=== PATIENT | female | born 1965 | race African-American/Black ===

== ENCOUNTER 2022-08-09 19:17 | Observation (INO) | payer OTHER ==
[2022-08-09 19:39] VITALS: BMI 23.0
[2022-08-09] MEDS ORDERED: ACETAMINOPHEN 325 MG TABLET (FP) PO ONE (20:40)
[2022-08-09] MEDS ORDERED: ACETAMINOPHEN 500 MG TABLET (FP) PO ONE (20:40)
[2022-08-09] MEDS ORDERED: ACETAMINOPHEN 325 MG TABLET (FP) ONE (20:54)
[2022-08-09 21:55] LABS: HEMATOCRIT 33.2 % (32.4-45.2); HEMOGLOBIN 10.7 GM/dL (10.7-15.3); MCH 23.1 pg (25.7-33.7); MCHC 32.3 g/dl (32.0-36.0); MEAN CELL VOLUME 71.4 fl (80-96); MEAN PLT VOLUME 7.8 fl (7.5-11.1); PLATELET COUNT 296 10^3/uL (134-434); RBC 4.65 M/mm3 (3.60-5.2); RDW 16.2 % (11.6-15.6); WHITE BLOOD COUNT 8.3 K/mm3 (4.0-10.0)
[2022-08-09 22:18] LABS: CALCIUM 8.7 mg/dL (8.5-10.1)
[2022-08-09 22:19] LABS: ALBUMIN 3.3 g/dl (3.4-5.0); BLOOD UREA NITROGEN 11.1 mg/dL (7-18)
[2022-08-09 22:24] LABS: BILIRUBIN,TOTAL 0.2 mg/dL (0.2-1); TOT PROT 6.8 g/dl (6.4-8.2)
[2022-08-09 22:36] LABS: ANISOCYTOSIS 1+; MACROCYTOSIS 0; OVALOCYTE 1+; PLATELET ESTIMATE NORMAL
[2022-08-10 01:01] VITALS: TEMP 97.3
[2022-08-10] MEDS ORDERED: LISINOPRIL 20 MG TABLET PO ONE (04:10)
[2022-08-10] MEDS ORDERED: LISINOPRIL 20 MG TABLET ONE (04:45)
[2022-08-10 05:11] VITALS: RESP 18
[2022-08-10] MEDS ORDERED: HYDROCHLOROTHIAZIDE 12.5 MG CAPSULE (FP) PO SCH (07:00)
[2022-08-10 07:25] VITALS: BP 154/64; PULSE 91
[2022-08-10] MEDS ORDERED: HYDROCHLOROTHIAZIDE 25 MG TABLET (FP) ONE (07:26)
[2022-08-10] MEDS: INSULIN SLIDING SCALE (NOVOLOG) 1 VIAL SQ SCH ×2 (07:33→12:39)
[2022-08-10] MEDS ORDERED: ENOXAPARIN NA (PORCINE) 40 MG/0.4 ML DISP.SYRIN SQ ONE (09:31)
[2022-08-10] MEDS ORDERED: ENOXAPARIN NA (PORCINE) 40 MG/0.4 ML DISP.SYRIN SQ SCH (10:00)
[2022-08-10] MEDS ORDERED: oxyCODONE HCL 5 MG TABLET PO SCH (12:30)
[2022-08-10] MEDS ORDERED: oxyCODONE HCL 5 MG TABLET ONE (12:56)
[2022-08-10] MEDS ORDERED: ALPRAZolam 1 MG TABLET PO PRN (16:13)
[2022-08-10] MEDS ORDERED: LISINOPRIL 20 MG TABLET PO SCH (22:00)
== END 2022-08-10 16:30 | disposition home or self-care (01) ==
LOC: JER 19:17 → EDBD 08-10 01:01 → JERBED 08-10 01:01
PROVIDERS: ADMIT Internal Medicine; ATTEND Internal Medicine
PROC: 3E013GC Introduction of Other Therapeutic Substance into Subcutaneous Tissue, Percutaneous Approach (ICD-10-PCS; principal; 2022-08-10)
DX: R07.89 Other chest pain (principal); I10 Essential (primary) hypertension; E11.9 Type 2 diabetes mellitus without complications; E78.5 Hyperlipidemia, unspecified; F17.210 Nicotine dependence, cigarettes, uncomplicated; I25.2 Old myocardial infarction; M25.562 Pain in left knee; M71.22 Synovial cyst of popliteal space [Baker], left knee; G89.29 Other chronic pain; Z79.84 Long term (current) use of oral hypoglycemic drugs; Z88.6 Allergy status to analgesic agent
CPT/HCPCS: 36415; 71046-TC-FY; 73562-TC-LT-FY; 73700-TC-RT; 80053; 80061; 82962; 83036; 84439; 84443; 84484; 85025; 93005; 93010; 93306-TC; 96372; 99285-25; C9803-CS; G0378; U0003; U0005

== ENCOUNTER 2022-08-15 01:47 | Emergency (ER) | payer OTHER ==
[2022-08-15 02:02] VITALS: BP 161/81; PULSE 86; RESP 18; TEMP 98.6; BMI 23.0
[2022-08-15] MEDS ORDERED: ASPIRIN 81 MG CHEWABLE TABLETS PO ONE (03:00)
[2022-08-15] MEDS ORDERED: ASPIRIN 325 MG TABLET ONE (03:09)
[2022-08-15] MEDS ORDERED: ASPIRIN 81 MG CHEWABLE TABLETS ONE (03:09)
[2022-08-15 04:56] LABS: HEMATOCRIT 32.5 % (32.4-45.2); HEMOGLOBIN 10.4 GM/dL (10.7-15.3); MCH 22.8 pg (25.7-33.7); MCHC 31.8 g/dl (32.0-36.0); MEAN CELL VOLUME 71.6 fl (80-96); MEAN PLT VOLUME 7.7 fl (7.5-11.1); PLATELET COUNT 318 10^3/uL (134-434); RBC 4.54 M/mm3 (3.60-5.2); RDW 15.9 % (11.6-15.6); WHITE BLOOD COUNT 8.8 K/mm3 (4.0-10.0)
[2022-08-15 04:58] LABS: INR 1.02 (0.83-1.09); PROTHROMBIN TIME (PATIENT) 11.7 SEC (9.7-13.0)
[2022-08-15 05:01] LABS: ACTIVATED PTT 36.5 SECONDS (25.2-36.5)
[2022-08-15 05:09] LABS: CALCIUM 8.4 mg/dL (8.5-10.1)
[2022-08-15 05:11] LABS: ALBUMIN 3.2 g/dl (3.4-5.0); BLOOD UREA NITROGEN 11.7 mg/dL (7-18)
[2022-08-15 05:14] LABS: CREATININE 0.9 mg/dL (0.55-1.3)
[2022-08-15 05:15] LABS: BILIRUBIN,TOTAL 0.2 mg/dL (0.2-1); TOT PROT 6.5 g/dl (6.4-8.2)
[2022-08-15 06:42] LABS: ANISOCYTOSIS 3+; MACROCYTOSIS 0
== END 2022-08-15 06:59 | disposition home or self-care (01) ==
LOC: JER 01:47
DX: R07.9 Chest pain, unspecified (principal)
CPT/HCPCS: 36415; 71045-TC-FY; 80053; 84484; 85025; 85379; 85610; 85730; 93005; 93010; 99285-25

== ENCOUNTER 2022-08-22 17:05 | Observation (INO) | payer OTHER ==
[2022-08-22 18:04] VITALS: TEMP 98.2; BMI 23.6
[2022-08-22] MEDS ORDERED: PROCHLORPERAZINE MALEATE 5 MG TABLET PO ONE (18:22)
[2022-08-22] MEDS ORDERED: ASPIRIN 325 MG TABLET PO ONE (18:22)
[2022-08-22] MEDS ORDERED: ASPIRIN 81 MG CHEWABLE TABLETS PO ONE (18:29)
[2022-08-22] MEDS ORDERED: PROCHLORPERAZINE MALEATE 5 MG TABLET ONE (18:32)
[2022-08-22] MEDS ORDERED: ASPIRIN 81 MG CHEWABLE TABLETS ONE (18:33)
[2022-08-22] MEDS ORDERED: LIDOCAINE 5% TOPICAL PATCH ONE (18:33)
[2022-08-22] MEDS: LIDOCAINE 5% TOPICAL PATCH TP ONE ×2 (18:36→18:54)
[2022-08-22 19:17] LABS: BASO % 0.7 % (0-2.0); EOS % 0.8 % (0-4.5); HEMATOCRIT 37.5 % (32.4-45.2); HEMOGLOBIN 12.2 GM/dL (10.7-15.3); LYMPH % 33.6 % (8-40); MCH 22.9 pg (25.7-33.7); MCHC 32.4 g/dl (32.0-36.0); MEAN CELL VOLUME 70.8 fl (80-96); MEAN PLT VOLUME 7.6 fl (7.5-11.1); MONO % 4.9 % (3.8-10.2); PLATELET COUNT 350 10^3/uL (134-434); RDW 16.2 % (11.6-15.6)
[2022-08-22 19:35] LABS: CALCIUM 9.2 mg/dL (8.5-10.1)
[2022-08-22 19:36] LABS: BLOOD UREA NITROGEN 12.1 mg/dL (7-18)
[2022-08-22 19:39] LABS: CREATININE 1.1 mg/dL (0.55-1.3)
[2022-08-22 19:40] LABS: BILIRUBIN,TOTAL 0.3 mg/dL (0.2-1)
[2022-08-22 19:41] LABS: TOT PROT 7.6 g/dl (6.4-8.2)
[2022-08-22 19:45] LABS: ALBUMIN 3.8 g/dl (3.4-5.0)
[2022-08-23] MEDS ORDERED: LIDOCAINE PATCH REMOVAL MC SCH ×2 (06:30→22:00)
[2022-08-23] MEDS: INSULIN SLIDING SCALE (NOVOLOG) 1 VIAL SQ SCH ×2 (08:17→11:20)
[2022-08-23] MEDS ORDERED: amLODIPine BESYLATE 5 MG TABLET (FP) ONE (09:23)
[2022-08-23] MEDS ORDERED: metoPROLOL SUCCINATE 25 MG TAB.SR.24H (FP) PO ONE (09:23)
[2022-08-23] MEDS ORDERED: ASPIRIN COATED 81 MG TABLET.EC ONE (09:23)
[2022-08-23] MEDS ORDERED: NICOTINE 7 MG/24 HOURS TOPICAL PATCH TD ONE (09:24)
[2022-08-23] MEDS ORDERED: LIDOCAINE 5% TOPICAL PATCH ONE ×2 (09:24→16:19)
[2022-08-23] MEDS ORDERED: LIDOCAINE 5% TOPICAL PATCH TP SCH (10:00)
[2022-08-23] MEDS ORDERED: ASPIRIN COATED 81 MG TABLET.EC PO SCH (10:00)
[2022-08-23] MEDS ORDERED: NICOTINE 7 MG/24 HOURS TOPICAL PATCH TD SCH (10:00)
[2022-08-23] MEDS ORDERED: LOSARTAN POTASSIUM 50 MG TABLET PO SCH (10:00)
[2022-08-23] MEDS ORDERED: ENOXAPARIN NA (PORCINE) 40 MG/0.4 ML DISP.SYRIN SQ SCH (10:00)
[2022-08-23] MEDS ORDERED: metoPROLOL SUCCINATE 25 MG TAB.SR.24H (FP) PO SCH (10:00)
[2022-08-23] MEDS ORDERED: amLODIPine BESYLATE 5 MG TABLET (FP) PO SCH (10:00)
[2022-08-23 11:23] VITALS: BP 145/63; PULSE 73; RESP 15
[2022-08-23] MEDS ORDERED: ATORVASTATIN CA 40 MG TABLET (FP) PO SCH (22:00)
[2022-08-23] MEDS ORDERED: ATORVASTATIN CA 80 MG TABLET (FP) PO SCH (22:00)
[2022-08-24] MEDS ORDERED: LIDOCAINE PATCH REMOVAL MC ONE (06:30)
== END 2022-08-23 17:45 | disposition left against medical advice (07) ==
LOC: JER 17:05 → UNDOADMOB 20:19 → INTOOBSV 20:19 → JERBED 20:19 → OBSVTOIN 20:19 → INTOOBSV 23:00 → UNDOADMOB 23:00 → OBSVTOIN 23:00 → JERBED 23:00
PROVIDERS: ADMIT Internal Medicine; ATTEND Internal Medicine
DX: I25.119 Atherosclerotic heart disease of native coronary artery with unspecified angina pectoris (principal); I11.9 Hypertensive heart disease without heart failure; I25.2 Old myocardial infarction; E78.5 Hyperlipidemia, unspecified; R07.9 Chest pain, unspecified; F17.210 Nicotine dependence, cigarettes, uncomplicated; E11.9 Type 2 diabetes mellitus without complications; M25.562 Pain in left knee; I10 Essential (primary) hypertension; Z88.8 Allergy status to other drugs, medicaments and biological substances
CPT/HCPCS: 36415; 71045-TC-FY; 80053; 82962; 84484; 85025; 93005; 93010; 99285-25; C9803-CS; G0378; U0003; U0005

== ENCOUNTER 2022-09-09 17:28 | Emergency (ER) | payer OTHER ==
[2022-09-09 18:06] VITALS: BP 149/79; PULSE 91; RESP 20; TEMP 98.5; BMI 23.6
[2022-09-09] MEDS ORDERED: ACETAMINOPHEN 1000 MG/100 ML BAG IVPB ONE (18:23)
[2022-09-09] MEDS ORDERED: LIDOCAINE 5% TOPICAL PATCH TP ONE (18:23)
[2022-09-09] MEDS ORDERED: ACETAMINOPHEN 325 MG TABLET (FP) ONE (18:38)
[2022-09-09] MEDS ORDERED: LIDOCAINE 5% TOPICAL PATCH ONE (18:38)
[2022-09-09] MEDS ORDERED: ACETAMINOPHEN 325 MG TABLET (FP) PO ONE ×2 (18:39→18:43)
[2022-09-09 19:21] LABS: ALBUMIN 3.4 g/dl (3.4-5.0); BLOOD UREA NITROGEN 9.2 mg/dL (7-18)
[2022-09-09 19:24] LABS: TOT PROT 6.7 g/dl (6.4-8.2)
[2022-09-09 19:26] LABS: BILIRUBIN,TOTAL 0.2 mg/dL (0.2-1)
[2022-09-10] MEDS ORDERED: LIDOCAINE PATCH REMOVAL MC SCH (06:30)
== END 2022-09-09 18:30 | disposition left against medical advice (07) ==
LOC: JER 17:28
DX: R07.9 Chest pain, unspecified (principal)
CPT/HCPCS: 36415; 71045-TC-FY; 80053; 82962; 84484; 99285-25

== ENCOUNTER 2022-09-24 08:43 | Emergency (ER) | payer OTHER ==
[2022-09-24 09:02] VITALS: BP 138/81; RESP 20; TEMP 98.3; BMI 23.6
[2022-09-24] MEDS ORDERED: LIDOCAINE 5% TOPICAL PATCH TP ONE (09:54)
[2022-09-24] MEDS ORDERED: FAMOTIDINE 20 MG TABLET PO ONE (09:54)
[2022-09-24] MEDS ORDERED: FAMOTIDINE 20 MG TABLET ONE (09:58)
[2022-09-24] MEDS ORDERED: LIDOCAINE 5% TOPICAL PATCH ONE (09:58)
[2022-09-24 14:07] VITALS: PULSE 89
[2022-09-24] MEDS ORDERED: LIDOCAINE PATCH REMOVAL MC ONE (22:00)
== END 2022-09-24 14:07 | disposition left against medical advice (07) ==
LOC: JER 08:43
DX: R51.9 Headache, unspecified (principal); R07.89 Other chest pain
CPT/HCPCS: 0241U-QW; 72128-TC; 93005; 93010; 99285-25

== ENCOUNTER 2022-09-29 11:03 | Inpatient (IN) | payer OTHER ==
[2022-09-29 11:30] VITALS: BMI 30.2
[2022-09-29 18:32] LABS: BASO % 1.5 % (0-2.0); HEMATOCRIT 35.7 % (32.4-45.2); HEMOGLOBIN 11.7 GM/dL (10.7-15.3); LYMPH % 45.1 % (8-40); MCH 22.8 pg (25.7-33.7); MCHC 32.6 g/dl (32.0-36.0); MEAN CELL VOLUME 69.8 fl (80-96); MEAN PLT VOLUME 7.9 fl (7.5-11.1); MONO % 5.1 % (3.8-10.2); NEUT % 46.3 % (42.8-82.8); PLATELET COUNT 288 10^3/uL (134-434); RBC 5.12 M/mm3 (3.60-5.2); RDW 14.8 % (11.6-15.6); WHITE BLOOD COUNT 7.5 K/mm3 (4.0-10.0)
[2022-09-29 18:40] LABS: INR 1.06 (0.83-1.09); PROTHROMBIN TIME (PATIENT) 12.2 SEC (9.7-13.0)
[2022-09-29 18:59] LABS: CALCIUM 8.8 mg/dL (8.5-10.1)
[2022-09-29 19:00] LABS: ALBUMIN 3.3 g/dl (3.4-5.0); MAGNESIUM 1.9 mg/dL (1.8-2.4)
[2022-09-29 19:05] LABS: BILIRUBIN,TOTAL 0.2 mg/dL (0.2-1); TOT PROT 6.6 g/dl (6.4-8.2)
[2022-09-29 20:28] LABS: CALCIUM 8.5 mg/dL (8.5-10.1)
[2022-09-29 20:29] LABS: ALBUMIN 3.1 g/dl (3.4-5.0); BLOOD UREA NITROGEN 6.2 mg/dL (7-18)
[2022-09-29 20:32] LABS: CREATININE 0.9 mg/dL (0.55-1.3)
[2022-09-29 20:34] LABS: BILIRUBIN,TOTAL 0.2 mg/dL (0.2-1); TOT PROT 6.1 g/dl (6.4-8.2)
[2022-09-29] MEDS ORDERED: INSULIN SLIDING SCALE (NOVOLOG) 1 VIAL SQ SCH (21:45)
[2022-09-29] MEDS ORDERED: ACETAMINOPHEN 1000 MG/100 ML BAG IVPB PRN (21:48)
[2022-09-29] MEDS ORDERED: SODIUM CHLORIDE 1,000 ML IV SCH (22:00)
[2022-09-30] MEDS: INSULIN SLIDING SCALE (NOVOLOG) 1 VIAL SQ SCH ×2 (07:15→12:00)
[2022-09-30 09:27] VITALS: BP 146/75; PULSE 96; RESP 20; TEMP 99.3
[2022-09-30] MEDS ORDERED: ASPIRIN COATED 81 MG TABLET.EC PO SCH (10:00)
[2022-09-30] MEDS ORDERED: ENOXAPARIN NA (PORCINE) 40 MG/0.4 ML DISP.SYRIN SQ SCH (10:00)
[2022-09-30] MEDS ORDERED: LIDOCAINE 5% TOPICAL PATCH TP SCH (10:00)
[2022-09-30] MEDS ORDERED: amLODIPine BESYLATE 5 MG TABLET (FP) PO SCH (22:00)
[2022-09-30] MEDS ORDERED: LIDOCAINE PATCH REMOVAL MC SCH (22:00)
== END 2022-09-30 14:55 | disposition left against medical advice (07) | DRG 312 ==
LOC: JER 11:03 → OBSVTOIN 18:06 → JERBED 18:06
PROVIDERS: ADMIT Internal Medicine; ATTEND Nurse Practitioner Acute Care
DX: R55 Syncope and collapse (principal); I10 Essential (primary) hypertension; E11.9 Type 2 diabetes mellitus without complications; E78.5 Hyperlipidemia, unspecified; J44.9 Chronic obstructive pulmonary disease, unspecified; I25.2 Old myocardial infarction; I25.10 Atherosclerotic heart disease of native coronary artery without angina pectoris; M25.569 Pain in unspecified knee; M54.50 Low back pain, unspecified; G93.9 Disorder of brain, unspecified; Z95.5 Presence of coronary angioplasty implant and graft
CPT/HCPCS: 0241U-QW; 36415; 70450-TC; 71045-TC-FY; 71260-TC; 74177-TC; 80053; 81003; 82962; 83690; 83735; 84100; 84132; 84484; 85025; 85610; 85730; 86850; 86900; 86901; 87086; 93005; 93010; 93880-TC; 99285-25; G0378; Q9967

== ENCOUNTER 2022-09-30 19:04 | Emergency (ER) | payer OTHER ==
[2022-09-30 19:30] VITALS: BP 125/72; PULSE 72; RESP 15; TEMP 98.1; BMI 24.7
== END 2022-09-30 23:48 | disposition home or self-care (01) ==
LOC: JERFT 19:04 → JER 19:04 → JERFT 23:48
DX: R52 Pain, unspecified (principal)
CPT/HCPCS: 93005; 93010; 99283-25

== ENCOUNTER 2022-10-01 14:30 | Emergency (ER) | payer OTHER ==
[2022-10-01 14:41] VITALS: BP 146/85; PULSE 85; RESP 18; TEMP 98.4; BMI 27.4
== END 2022-10-01 17:34 | disposition home or self-care (01) ==
LOC: JER 14:30
DX: M79.641 Pain in right hand (principal)
CPT/HCPCS: 73110-TC-RT-FY; 73130-TC-RT-FY; 99283-25

== ENCOUNTER 2022-10-04 23:14 | Emergency (ER) | payer OTHER ==
[2022-10-04 23:33] VITALS: BP 133/90; PULSE 96; RESP 18; TEMP 98.7; BMI 23.6
[2022-10-05] MEDS ORDERED: ACETAMINOPHEN 500 MG TABLET (FP) PO ONE (00:27)
[2022-10-05] MEDS ORDERED: ACETAMINOPHEN 325 MG TABLET (FP) ONE (00:40)
== END 2022-10-05 05:37 | disposition home or self-care (01) ==
LOC: JER 23:14
DX: R07.9 Chest pain, unspecified (principal)
CPT/HCPCS: 93005; 93010; 99283-25

== ENCOUNTER 2022-10-08 02:06 | Emergency (ER) | payer OTHER ==
[2022-10-08 02:17] VITALS: BP 137/85; PULSE 79; RESP 17; TEMP 98.1; BMI 21.5
== END 2022-10-08 04:31 | disposition home or self-care (01) ==
LOC: JER 02:06
DX: R07.9 Chest pain, unspecified (principal); E11.65 Type 2 diabetes mellitus with hyperglycemia
CPT/HCPCS: 82962; 93005; 93010; 99284-25

== ENCOUNTER 2022-10-08 08:37 | Emergency (ER) | payer OTHER ==
[2022-10-08 09:14] VITALS: BP 121/79; PULSE 95; RESP 18; TEMP 98; BMI 23.6
== END 2022-10-08 12:30 | disposition left against medical advice (07) ==
LOC: JER 08:37
DX: R07.9 Chest pain, unspecified (principal)
CPT/HCPCS: 99283-25

== ENCOUNTER 2022-10-11 04:46 | Emergency (ER) | payer OTHER ==
[2022-10-11 05:01] VITALS: BP 134/92; PULSE 90; RESP 18; TEMP 98.2; BMI 23.3
[2022-10-11 08:52] LABS: HEMATOCRIT 35.9 % (32.4-45.2); HEMOGLOBIN 11.6 GM/dL (10.7-15.3); MCH 22.5 pg (25.7-33.7); MCHC 32.4 g/dl (32.0-36.0); MEAN CELL VOLUME 69.6 fl (80-96); PLATELET COUNT 389 10^3/uL (134-434); RBC 5.16 M/mm3 (3.60-5.2); RDW 14.8 % (11.6-15.6); WHITE BLOOD COUNT 8.6 K/mm3 (4.0-10.0)
[2022-10-11 09:03] LABS: PROTHROMBIN TIME (PATIENT) 11.5 SEC (9.7-13.0)
[2022-10-11 09:06] LABS: ACTIVATED PTT 40.6 SECONDS (25.2-36.5)
[2022-10-11 09:20] LABS: ALBUMIN 3.7 g/dl (3.4-5.0); BLOOD UREA NITROGEN 8.9 mg/dL (7-18); CALCIUM 9.3 mg/dL (8.5-10.1)
[2022-10-11 09:23] LABS: CREATININE 1.2 mg/dL (0.55-1.3)
[2022-10-11 09:25] LABS: BILIRUBIN,TOTAL 0.2 mg/dL (0.2-1); TOT PROT 7.1 g/dl (6.4-8.2)
[2022-10-11 10:37] LABS: ANISOCYTOSIS 0; HELMET CELLS 0; HOWELL-JOLLY BODIES 0; MACROCYTOSIS 0; OVALOCYTE 0; ROULEAU 0; SICKELED CELLS 0; TARGET CELLS 0; TEAR DROP CELLS 0; TOXIC GRANULATION 0
== END 2022-10-11 10:45 | disposition home or self-care (01) ==
LOC: JER 04:46
DX: R07.9 Chest pain, unspecified (principal)
CPT/HCPCS: 36415; 71045-TC-FY; 80053; 82550; 84484; 85025; 85610; 85730; 99284-25

== ENCOUNTER 2022-10-11 18:18 | Emergency (ER) | payer OTHER ==
[2022-10-11 18:34] VITALS: BP 156/96; PULSE 90; RESP 18; TEMP 98
== END 2022-10-11 19:00 | disposition left against medical advice (07) ==
LOC: JER 18:18 → JCOVINFU 18:18